=== PATIENT | male | born 1985 | race Two or more races ===

== ENCOUNTER 2025-03-12 13:14 | Emergency (ER) | payer MEDICAID, SELFPAY ==
[2025-03-12 13:16] VITALS: BP 122/72; PULSE 73; RESP 16; TEMP 36.1; O2SAT 97; BMI 25.4
--- NOTE | 2025-03-12 13:17 | ED.GENADULT ---
HPI - General Adult General Chief complaint: Psychiatric Symptoms Stated complaint: drug relapse Time Seen by Provider: 03/12/25 13:38 Source: patient and old records reviewed Mode of arrival: ambulatory Limitations: no limitations History of Present Illness ED Provider: LILIAN BERMEO narrative: 39-year-old male with past medical history of opiate use disorder maintained on Suboxone, as well as depression. He reports no SI or HI. But he does not note he recently cocaine is on probation and states he relapsed. He called around asking for help and they told to come to the ED and possibly going to detox. He denies any medical concerns or self-harm. He states he needs to talk to crisis MD complaint: Depression Onset (ago): day(s) (Few) Severity: moderate Relieving factors: none Exacerbating factors: other Associated symptoms: denies other symptoms Treatments prior to arrival: none Related Data Home Medications ?Medication ?Instructions ?Recorded ?Confirmed buprenorphine 8 mg-naloxone 2 mg 3 film sublingual DAILY 03/12/25 03/12/25 sublingual film (Suboxone) famotidine 20 mg tablet 20 mg PO DAILY 03/12/25 03/12/25 mirtazapine 30 mg tablet 30 mg PO BEDTIME 03/12/25 03/12/25 Allergies Allergy/AdvReac Type Severity Reaction Status Date / Time seafood Allergy Angioedema Verified 03/12/25 13:21 Review of Systems Review of Systems: Constitutional : No Fever, No Chills ENT/Mouth : No Ear Pain, No Nasal Congestion, No sore throat Eyes: No Eye Pain, No Swelling, No Redness Cardiovascular : No Chest Pain, No SOB Respiratory : No Cough, No Sputum, No Dyspnea Gastrointestinal : No Nausea, No Vomiting, No Diarrhea, No Hematochezia, No Melena Genitourinary : No Dysuria, No Urinary Frequency, No Hematuria Musculoskeletal : No Myalgias Skin : No Skin Lesions, No rash Neuro : No Weakness, No Numbness, No Paresthesias, No Dizziness, No Headache Psych : positive Anxiety, positive Depression, no SI/HI All other systems reviewed and are negative PMF Past Medical History Attestation statement: The following information was validated with the patient. Source: old records reviewed Medical History (Updated 03/13/25 @ 00:01 by Marissa Ruggiero) Active substance abuse Depression Social History Social History (Updated 03/12/25 @ 13:59 by Kourtney Villarreal DO) Alcohol intake: current Alcohol intake frequency: holidays/special occasions only Patient Tobacco Use Status: Current everyday Tobacco user Smoked in Last 30 Days: Yes Use of substances other than those prescribed or required for medical reasons: Yes Substance Use Type: Crack/Cocaine Substance Use Frequency: Recent Binge Any prior treatment program specific to substance use: No Advance Directives: No Advance Directives Information Provided: Yes Do you have a plan to hurt others: No Plan Physical Exam ED Vital Signs: Vital Signs - 24 hr 03/12/25 19:16 Temperature 97.0 F Pulse Rate 74 Respiratory Rate 16 Blood Pressure 122/72 Pulse Oximetry 99 Oxygen Delivery Method Room Air BMI result Body Mass Index 25.4 Appearance: Alert. Oriented X3. No acute distress. Eyes: Pupils equal, round and reactive to light. ENT: Pharynx normal. Neck: Normal inspection. Neck supple. CVS: Normal heart rate and rhythm. Pulses normal. Respiratory: No respiratory distress. Breath sounds normal. Abdomen: Soft and nontender. Skin: Skin warm and dry. Normal skin color. Extremities: No lower extremity edema. Neuro: Oriented X 3. No motor deficit. No sensory deficit. cranial nerve exam not applicable Course Course Course Narrative: Rapid medical examination performed in triage by Estelita Odell PA-C: Patient is a 39 year old assigned male at presenting to the emergency department for medical evaluation for rehab. Patient states he needs to be medical cleared to go to [place] for recovery. Patient states that he is usually on suboxone. Patient states that he recently relapsed on cocaine. 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 EKG, labs ordered. Patient denies and SI or HI. Patient placed back in the waiting room pending room availability and results. Reevaluation(s) Reevaluation #1: 7:16 PM 03/12/2025 (LILIAN RIOS): physician observation ended patient discharged home. cleared by CARE team. Medications Administered Discontinued Medications Generic Name Dose Route Start Last Admin Trade Name Freq PRN Reason Stop Dose Admin Buprenorphine/Naloxone 1 film 03/12/25 13:53 03/12/25 14:44 Buprenorphine/Naloxone 8/2 Mg Film SUBLINGUAL 03/12/25 13:54 1 film ONCE ONE Administration Medical Decision Making Medical Decision Making MDM Narrative: 39-year-old male with past medical history of depression, substance abuse, opiate disorder has been maintained on Suboxone he admits to recent relapse on cocaine he denies any medical issues or concerns. He states he is depressed but has no SI HI. At this time we will obtain labs, EKG and refer to care team. He has no SI or HI he is voluntary The care team evaluated the patient. Patient is not SI or HI, sectioned was not indicated. Patient prefers to follow up outpatient. Resources were provided to the patient. Patient agrees with plan. Differential Diagnosis Differential Diagnoses: The differential diagnosis associated with the presentation includes Substance abuse, depression Admission/Observation Consideration of admission/observation: Escalation of care including admission/observation considered 1:55 PM 03/12/2025 (LILIAN RIOS): Physician observation started pending care team Consult Healthcare Provider Management of the patient was discussed with: Behavioral Health Provider Lab Data [facility] Lab Attestation statement: I reviewed the patient's lab results. 03/12/25 13:40 03/12/25 13:40 Labs: Lab Results 03/12/25 03/12/25 Range/Units 13:39 13:40 WBC 7.7 (4.8-10.8) X10*3/uL RBC 5.52 (4.60-5.80) X10*6/uL Hgb 16.5 (14.0-18.0) g/dl Hct 47.0 (42.0-52.0) % MCV 85.1 (80.0-98.0) fL MCH 29.9 (27.0-33.0) pg MCHC 35.1 (31.0-36.0) g/dl RDW 12.1 (11.0-16.0) % Plt Count 235 (160-400) X10*3/uL MPV 11.7 (9.4-12.4) fL Immature Gran % (Auto) 0.3 (0.0-0.4) % Neut % (Auto) 68.4 (45-73) % Lymph % (Auto) 21.9 (20-40) % [place] % (Auto) 7.9 (2-11) % Eos % (Auto) 0.9 (0-4) % Baso % (Auto) 0.6 (0-2) % Lymph # (Auto) 1.7 (1.2-4.9) X10*3/uL [place] # (Auto) 0.6 (0.1-1.2) X10*3/uL Eos # (Auto) 0.1 (0.0-0.4) X10*3/uL Baso # (Auto) 0.1 (0.0-0.2) X10*3/uL Abs Immat Gran (auto) 0.02 (0.00-0.03) X10*3/uL Absolute Neuts (auto) 5.3 (2.0-8.3) x10*3/uL Absolute Nucleated RBC 0.000 (0.0-0.012) X10*3/uL Nucleated RBC % (auto) 0.0 (0.0-0.2) /100WBC Sodium 140 (135-145) mmol/L Potassium 4.0 (3.3-5.1) mmol/L Chloride 105 (96-108) mmol/L Carbon Dioxide 26 (22-29) mmol/L Anion Gap 13 (12-20) BUN 11 (9-16) mg/dL Creatinine 1.00 (0.5-1.4) mg/dL Estim Creat Clear Calc 73.3 Estimated GFR > 60 Random Glucose 88 (60-115) mg/dL Calcium 10.0 (8.4-10.2) mg/dL Magnesium 2.1 (1.6-2.6) mg/dL Total Bilirubin 1.0 (0.0-1.0) mg/dL AST 35 (5-37) U/L ALT 21 (0-40) U/L Alkaline Phosphatase 65 (39-117) U/L Total Protein 8.1 H (6.5-8.0) g/dL Albumin 5.2 H (3.5-5.0) g/dL Ethyl Alcohol < 10 mg/dL Independent Interpretation I performed an independent interpretation of an: EKG Interpretation: Rate: 72 Rhythm: Normal sinus rhythm [place]: Normal Normal P waves. Normal [place]. Normal QRS complex. ST T wave : Inverted T-waves V1 no ST-elevation qTC: 438 prior studies: No acute ischemia The study has been interpreted contemporaneously by me. . External Record Review External record reviewed: Outpatient record Critical Care Time Critical Care Time Critical Care Time: Yes Total Critical Care Time: 35 Attestation: I have personally provided critical care time. Time includes review of lab data, radiology results, discussion with consultants, and monitoring for potential decompensation. Intervention performed as documented. Discharge Plan Discharge Clinical Impression: Depression, Cocaine abuse Patient Disposition: Home, Self-Care Instructions: Cocaine Use Disorder (ED), Depression (ED) Additional Instructions: Please follow-up with your primary care physician tomorrow. If you have any worsening or new symptoms, please return to the emergency room or call 911 Prescriptions: No Action famotidine 20 mg tablet 20 mg PO DAILY mirtazapine 30 mg tablet 30 mg PO BEDTIME buprenorphine-naloxone [Suboxone] 8-2 mg film 3 film sublingual DAILY Interventions: [place]-Suicide Risk Severity Scale Last Done: 03/12/25 15:13 ED Discharge Assessment Last Done: 03/12/25 19:16 Discharge Date/Time: 03/12/25 19:33 Print Language: Stateless
--- NOTE | 2025-03-12 13:19 | ECG_ITS ---
Test Reason : cocaine use Blood Pressure : */* mmHG Vent. Rate : 72 BPM Atrial Rate : 72 BPM P-R Int : 114 ms QRS Dur : 86 ms QT Int : 400 ms P-R-T Axes : 32 99 45 degrees QTcB Int : 438 ms Normal sinus rhythm Rightward axis Borderline ECG No previous ECGs available Referred By: Estelita Odell Electronically Signed By: JOSE ELIAS PRETTY MD
[2025-03-12 13:43] LABS: MANUAL DIFF FLAG NO
[2025-03-12 13:53] LABS: Hematocrit 47.0 % (42.0-52.0); Hemoglobin 16.5 g/dl (14.0-18.0); Imm Gran Abs Auto 0.02 X10*3/uL (0.00-0.03); Imm Gran Pct Auto 0.3 % (0.0-0.4); Lymphocytes Absolute Auto 1.7 X10*3/uL (1.2-4.9); Mean Corpuscular HGB Conc 35.1 g/dl (31.0-36.0); Mean Corpuscular Hemoglobin 29.9 pg (27.0-33.0); Mean Corpuscular Volume 85.1 fL (80.0-98.0); NRBC Abs Auto 0.000 X10*3/uL (0.0-0.012); NRBC Pct Auto 0.0 /100WBC (0.0-0.2); Platelet Count 235 X10*3/uL (160-400); Red Blood Count 5.52 X10*6/uL (4.60-5.80); White Blood Count 7.7 X10*3/uL (4.8-10.8)
[2025-03-12 14:08] LABS: Alanine Aminotransferase 21 U/L (0-40); Albumin Level 5.2 g/dL (3.5-5.0); Alkaline Phosphatase 65 U/L (39-117); Anion Gap 13 (12-20); Aspartate Amino Transferase 35 U/L (5-37); Blood Urea Nitrogen 11 mg/dL (9-16); Calcium 10.0 mg/dL (8.4-10.2); Carbon Dioxide 26 mmol/L (22-29); Chloride 105 mmol/L (96-108); Creatinine Clr Calc Pharmacy 73.3; Estimated Glomerular Filt Rate > 60; Magnesium 2.1 mg/dL (1.6-2.6); Potassium 4.0 mmol/L (3.3-5.1); Sodium 140 mmol/L (135-145); Total Protein 8.1 g/dL (6.5-8.0)
--- NOTE | 2025-03-12 14:44 | PC.NURSE ---
Suboxone dose delayed after 30 min dose parameters due to previous RN not administering while in ED.
[2025-03-12 15:14] VITALS: PULSE 74; RESP 16; O2SAT 99
--- OUTSIDE RECORDS SUMMARY | 2025-03-12 16:38 | XMS_ITS | Clinical Summary ---
Author Organization [employer] Address [address] [place] [address] Care Team Providers Care Dispute Resolution Specialist Name Role Phone Unavailable Primary Care Provider Unavailabl e Medications Suboxone 8-[address] 2.5 Film under the tongue Once per day. Active famotidine (Pepcid) 20 MG tablet Take 1 tablet by mouth Once per day. Active naloxone (Narcan) 4 mg/0.1 mL nasal spray Administer 4 mg into affected nostril(s) if needed for opioid reversal or respiratory depression. Active naproxen (Naprosyn) 500 MG tablet Take 1 tablet by mouth 2 times daily. Active Encounters Date Type Department Care Team Description 03/06/2025 Telephone [facility] [address] [place] [address] Alyson Steiner DO Chart Prep 03/06/2025 Patient Outreach [facility] [address] [place] [address] Alyson Steiner DO Pre-visit Planning (Unable to complete) 01/16/2025 Telephone [facility] [address] [place] [address] Pcp, [facility] Only Unassigned No Show (called pt to r/s no show, phone not available at the moment, will mail no show reminder) from Last 3 Months Social History Tobacco Use Types Packs/Day Years Used Date Smoking Tobacco: Never Assessed Sex and Gender Information Value Date Recorded Sex Assigned at Male 07/17/2024 11:07 AM EDT Legal Sex Male 11:02 AM EDT Gender Identity Male 07/17/2024 11:07 AM EDT Sexual Orientation Straight 07/17/2024 11 :07 AM EDT Plan of Treatment Upcoming Encounters Date Type Department Care Team (Late st Contact Info) Description 03/13/2025 10:15 AM EST Office Visit [facility] [address] [place] [address] Alyson Steiner DO [address] [place], [place] [phone] Health Maintenance Due Date Last Done Comments Depression Screening 1985 HIV Screening 1985 Lipid Panel 1985 SDOH Screening 1985 Disability Screening 1985 Alcohol/Substance Use Screening 1997 Tobacco Screening 1997 Family Planning (PISQ) 2000 HPV Vaccines (1 - Male 3-dos e series) 2000 Hepatitis C Screening 09/05/2003 DTaP/Tdap/Td Vaccines (1 - Tdap) 2004 Hepatitis B Vaccines (1 of 3 - 19+ 3-dose series) 2004 COVID-19 Vaccine (1 - 2023-2 5 season) 2025 Influenza Vaccine (#1) 2025 Zoster Vaccines (1 of 2) 09/05/2035 RSV Patients and Pa tients Aged 60 years or older (1 - 1-dose 75+ series) 2060 HIB Vaccines Aged Out No longer eligi ble based on patient's age to complete this topic Hepatitis A Vaccines Aged Out No long er eligible based on patient's age to complete this topic IPV Vaccines Aged Out No longer eligi ble based on patient's age to complete this topic Meningococcal B Vaccine Aged Out No l onger eligible based on patient's age to complete this topic Meningococcal Vaccine Aged Out No sarita ross eligible based on patient's age to complete this topic Pneumococcal Vaccine: Pediat rics (0 to 5 Years) and At-Risk Patients (6 to 49) Years Aged Out No longer eligible b ased on patient's age to complete this topic RSV under 20 months Aged Out No longe r eligible based on patient's age to complete this topic Rotavirus Vaccines Aged Out No longer eligible based on patient's age to complete this topic Insurance HEALTH C3 HEALTH C3
--- NOTE | 2025-03-12 17:51 | MHC.CARE ---
Patient evaluated by the CARE Team, disposition inpatient psychiatric treatment. Provider, Dr. Villarreal, updated.
--- NOTE | 2025-03-12 18:33 | PC.NURSE ---
pt demanding discharge, jumping off his bed, pacing back and forth between room and phone
[2025-03-12 19:16] VITALS: BP 122/72; PULSE 74; RESP 16; TEMP 36.1; O2SAT 99
--- NOTE | 2025-03-12 21:26 | MHC.CARE ---
RAd Team emailed [facility] referral for this pt. Will follow up tomorrow.
== END 2025-03-12 19:33 | disposition home or self-care (01) ==
PROVIDERS: Physician Assistant Medical; Emergency Provider Emergency Medicine
DX: F32.A Depression, unspecified (principal); F11.20 Opioid dependence, uncomplicated; F14.90 Cocaine use, unspecified, uncomplicated; F17.210 Nicotine dependence, cigarettes, uncomplicated
CPT/HCPCS: 36415; 80053; 80307; 83735; 85025; 93005; 99285; S9485

== ENCOUNTER → 2025-03-12 13:19 | Outpatient (BNV) | payer MEDICAID, SELFPAY | PROVIDERS: Emergency Provider Emergency Medicine; Visit Provider Internal Medicine Cardiovascular Disease | DX: F14.90 Cocaine use, unspecified, uncomplicated (principal) | CPT/HCPCS: 93010 ==